=== PATIENT | male | born 1980 | race Caucasian/White ===

== ENCOUNTER 2021-07-10 13:06 | Emergency (ER) | payer OTHER ==
[2021-07-10 15:33] LABS: HIV (1/2) Antibody/Antigen Non-Reactive (NonReactive); HIV 1/2 INDEX 0.12 S/CO (<1.00); Hep C IgG Ab Non-Reactive (NonReactive); Hep C Index 0.13 S/CO (0-0.79)
[2021-07-10 15:59] LABS: HBSAB Concentration 12.17 mIU/mL; Hep B Surf AB Reactive (NonReactive)
== END 2021-07-10 14:30 | disposition home or self-care (01) ==
LOC: ERS 13:06 → EDSTATUS 13:16 → ERS 14:30
DX: Z77.21 Contact with and (suspected) exposure to potentially hazardous body fluids (principal)
CPT/HCPCS: 36415; 86706; 86803; 87389; 99283